=== PATIENT | female | born 1960 | race Caucasian/White ===

== ENCOUNTER 2022-11-05 08:54 | Day surgery (SDC) | payer OTHER ==
[~2022-11-05] VITALS: Ht 162.6 cm; Wt 115.9 kg
[~2022-11-05 08:54] MED LIST: 24 HOUR ALLERG9.9 ML NAS; ALL DAY ALLERGY10 M4 PO; BUSPIRONE HCL5 MG; CAROSPIR25 MG/5 ML
[2022-11-05 09:12] VITALS: BP 138/83
[2022-11-05] MEDS ORDERED: BUSPIRONE HCL15 MG PO (09:15)
[2022-11-05] MEDS ORDERED: SPIRONOLACTONE25 MG PO (09:15)
--- NOTE | 2022-11-05 10:37 | NUR ---
11/05/22 Sophie Howard 1033-PATIENT ARRIVED TO PACU ON 3L NC RR EVEN PLACED ON 2L. PATIENT AWAKE DROWSY DENIES PAIN OR NAUSEA. LAYING LEFT LATERAL ABDOMEN SOFT IVF INFUSING. PATIENT DOZES BACK TO SLEEP
[2022-11-05 11:12] VITALS: BP 111/84
--- NOTE | 2022-11-05 15:22 | OR ---
[facility] [address], [place] [address] Signed DATE OF OPERATION: 11/05/2022 SURGEON: Samuel Sorto MD PREOPERATIVE DIAGNOSES: 1. Dyspeptic symptoms suggestive of gastroesophageal reflux. 2. Colon screening. POSTOPERATIVE DIAGNOSES: 1. Hiatal hernia with mild gastritis, no evidence of severe esophagitis. 2. Extensive diverticulosis of colon. 3. Polyps x2 (right colon and sigmoid). PROCEDURES: 1. Esophagogastroduodenoscopy with biopsy. 2. Total colonoscopy to cecum with cold morcellation polypectomy x1 and cold snare polypectomy x1. ANESTHESIA: Intravenous sedation, fentanyl 150 mcg, Versed 9 mg (total). INDICATIONS FOR THE PROCEDURE: This 62-year-old white woman is a patient of GILMA Cheung. She is referred for symptoms of upper abdominal pain, dyspeptic symptoms, suggestion of possible reflux. She occasionally has some mild dysphagia, but no hematemesis. She has not yet undergone colonoscopy and on that basis is additionally admitted to undergo screening colonoscopy. The risk of bleeding, infection, perforation, and other unforeseen complications was reviewed with her. She understands and wished to proceed. FINDINGS: Upper endoscopy demonstrated relatively normal esophageal mucosa with no evidence of obvious stricture, neoplasm, or even inflammation particularly. There was a hiatal hernia that was moderately large, however. The stomach itself had mild inflammation. There was no sign of ulceration. The duodenum was normal. CLOtest was negative 30 minutes post procedure. On colonoscopy, the prep was quite good. Complete colonoscopy was undertaken to the cecum without question. She has extensive diverticulosis extending from the sigmoid proximally to all of the colon, most dominantly in the sigmoid and left colon. Electronically Signed By: SAMUEL SORTO MD 11/05/22 1522 PATIENT NAME: LILLY ROSS OPERATIVE REPORT DATE OF : 64 REPORT #: [id number] PHYSICIAN: SAMUEL SORTO MD PCP: GAVIN GUZMAN DO REPORT IS CONFIDENTIAL AND NOT TO BE RELEASED WITHOUT AUTHORIZATION [facility] [address], [place] [address] Signed There were two polyps, both of them small, both adenomatous in appearance, one in the right colon, excised with cold morcellation technique. The other in the sigmoid, excised with cold snare technique. There were no other findings of concern. DESCRIPTION OF PROCEDURE: The patient was brought to the endoscopy suite and placed in lateral decubitus position after undergoing lidocaine hypopharyngeal anesthesia. A bite block was placed. After administration of intravenous sedation to the point of slurred speech and nystagmus with full cardiopulmonary monitoring. An Olympus video upper endoscope was passed into the hypopharynx. The vocal cords appeared normal. Scope was advanced to the esophagus throughout its length, it appeared normal. The scope was passed into the stomach, which was insufflated with air. Rugal folds were normal. There was mild inflammatory change of the antrum. The pylorus was normal, scope was passed through into the duodenum, which was normal. Biopsies were taken of the duodenum to assess for celiac disease. The scope was withdrawn and biopsies taken from the stomach for both TANJA and pathologic testing. Retroflexed view was undertaken showing a moderate-sized hiatal hernia. The scope was straightened, withdrawn and biopsies then taken of the distal esophagus, but appeared normal. There was no Tatum epithelium or inflammation particularly. Midesophagus was biopsied as well. Scope was withdrawn, removed. Plans were then made for colonoscopy. Additional sedation was given. Digital rectal examination performed, which was normal and an Olympus video colonoscope passed into the rectum. Scope was advanced throughout the colon noting numerous diverticula of the sigmoid and left colon. The diverticula scattered all the way to the proximal colon including the right colon. Ileocecal valve and appendiceal orifice were identified as normal. Scope was withdrawn. In the mid ascending colon, there was a small adenomatous-appearing polyp, which was excised with cold morcellation technique completely. Further withdrawal showed diverticula once more and in the sigmoid colon at approximately 50 cm, a sessile slightly larger polyp noted, this was excised with cold snare technique completely. Specimen was passed for pathology. Further withdrawal showed no other abnormality including on retroflexed view of the rectum. The scope was removed. The patient was taken to the recovery room in good condition. CONCLUDING DIAGNOSES: 1. Clinical gastroesophageal reflux with associated hiatal hernia. No sign of obvious esophagitis. Mild gastritis. 2. Extensive diverticulosis; two small polyps, both excised. Electronically Signed By: SAMUEL SORTO MD 11/05/22 1522 PATIENT NAME: LILLY ROSS OPERATIVE REPORT DATE OF : 64 REPORT #: [id number] PHYSICIAN: SAMUEL SORTO MD PCP: GAVIN GUZMAN DO REPORT IS CONFIDENTIAL AND NOT TO BE RELEASED WITHOUT AUTHORIZATION [address] [address] Signed PLAN: Recommend PPI medication, omeprazole 20 mg p.o. daily. Recommend high-fiber diet. Additionally, we will recommend repeat colonoscopy in three years or sooner if clinically indicated. We will see her back in the office in 6-8 weeks and review her pathology reports and assess her response to therapy. MD SHAREE Rooney/CRISSL /[id number] cc: GILMA Cheung Copies: ~ Electronically Signed By: SAMUEL SORTO MD 11/05/22 1522 PATIENT NAME: LILLY ROSS OPERATIVE REPORT DATE OF : 64 REPORT #: [id number] PHYSICIAN: SAMUEL SORTO MD PCP: GAVIN GUZMAN DO REPORT IS CONFIDENTIAL AND NOT TO BE RELEASED WITHOUT AUTHORIZATION
--- NOTE | 2022-11-10 09:03 | PATH ---
[facility] [address], [place] [address] Signed SPECIMEN(S): A DUODENAL BIOPSY SPECIMEN(S): B ANTRUM/PYLORUS BIOPSY SPECIMEN(S): C LOWER ESOPHAGEAL BIOPSY SPECIMEN(S): D MIDDLE ESOPHAGEAL BIOPSY SPECIMEN(S): E ASCENDING/RIGHT COLON POLYP SPECIMEN(S): F DESCENDING/LEFT COLON POLYP SPECIMEN SOURCE: A. DUODENAL BIOPSY B. ANTRUM/PYLORUS BIOPSY C. LOWER ESOPHAGEAL BIOPSY D. MIDDLE ESOPHAGEAL BIOPSY E. ASCENDING/RIGHT COLON POLYP F. DESCENDING/LEFT COLON POLYP CLINICAL HISTORY: Pre: Family history (grandfather) colon CA, initial screening. Dysphagia, dyspepsia, reflux. Post: Hiatal hernia, diverticulosis, polyps x2. FINAL PATHOLOGIC DIAGNOSIS: A. Duodenal biopsy: - Benign duodenal mucosa, negative for specific diagnostic abnormality. B. Antrum / pylorus biopsy: - Benign gastric-type mucosa with focal slight chronic inflammation. - Negative for evidence of Helicobacter organisms on routine HE stained sections. C. Lower esophageal biopsy: - Benign esophageal epithelium, negative for increased epithelial eosinophils. - Negative for glandular mucosa. D. Middle esophageal biopsy: - Benign esophageal epithelium, negative for increased epithelial eosinophils. E. Ascending / right colon polyp: - Tubular adenoma (one fragment). F. Descending / left colon polyp: - Tubular adenoma (one fragment). [id number] MICROSCOPIC EXAMINATION: Histologic sections of all submitted blocks are examined by light microscopy. These findings, together with the gross examination, support the pathologic diagnosis. PATIENT NAME: LILLY LACKEY PATHOLOGY DATE OF : 64 REPORT #: [id number] PHYSICIAN: KAYY HELLER PCP: GAVIN GUZMAN DO REPORT IS CONFIDENTIAL AND NOT TO BE RELEASED WITHOUT AUTHORIZATION [facility] [address], [place] [address] Signed GROSS DESCRIPTION: A. The specimen, labeled and designated "Lackey, S, 1." and designated on the requisition "duodenum biopsy," is received in formalin and consists of two ortega soft tissue fragments that measure 0.3 and 0.5 cm in greatest dimension. The specimen is entirely submitted in (A1). B. The specimen, labeled and designated "Lackey, S, 2." and designated on the requisition "antrum/pylorus biopsy," is received in formalin and consists of two ortega soft tissue fragments that measure 0.3 and 0.4 cm in greatest dimension. The specimen is entirely submitted in (B1). C. The specimen, labeled and designated "Lackey, S, 3." and designated on the requisition "lower esophagus biopsy," is received in formalin and consists of two white-ortega soft tissue fragments that measure 0.7 and 0.9 cm in greatest dimension. The specimen is entirely submitted in (C1). D. The specimen, labeled and designated "Lackey, S, 4." and designated on the requisition "middle esophagus biopsy," is received in formalin and consists of one white-ortega soft tissue fragment that measures 1.0 cm in greatest dimension. The specimen is entirely submitted in (D1). E. The specimen, labeled and designated "Lackey, S, 5." and designated on the requisition "ascending/right polypectomy," is received in formalin and consists of three ortega soft tissue fragments that measure 0.2-0.3 cm in greatest dimension. Also present within the container is fecal debris. The specimen is entirely submitted in (E1). F. The specimen, labeled and designated "Darya, Radha, 6." and designated on the requisition "descending/left polypectomy," is received in formalin and consists of one ortega soft tissue fragment that is 0.5 cm in greatest dimension. The specimen is entirely submitted in (F1). FB (under the direct supervision of a pathologist) The Gross Description was prepared using a voice recognition system. The report was reviewed for accuracy; however, sound-alike word errors, addition and/or deletions may occur. If there is any question about this report, please contact Client Services. PERFORMING LABORATORY: Technical component was performed by [facility], [address] [place] [id number] (CLIA# [id number]). Professional interpretation was performed by [facility] [place], PATIENT NAME: LILLY LACKEY PATHOLOGY DATE OF : 64 REPORT #: [id number] PHYSICIAN: ALLENHardide Coatings PATHOLOGY PCP: GAVIN GUZMAN DO REPORT IS CONFIDENTIAL AND NOT TO BE RELEASED WITHOUT AUTHORIZATION [facility] [address] [place] [id number] Signed [address] [place] [address] (CLIA#: [id number]). Diagnostician: Huan Ricci MD Pathologist Electronically Signed 11/09/2022 Copies: ~ PATIENT NAME: LILLY LACKEY PATHOLOGY DATE OF : 64 REPORT #: [id number] PHYSICIAN: KAYY HELLER PCP: GAVIN GUZMAN DO REPORT IS CONFIDENTIAL AND NOT TO BE RELEASED WITHOUT AUTHORIZATION
== END 2022-11-05 11:20 | disposition home or self-care (01) ==
LOC: DS 08:54 → OPS 08:54 → DS 13:45 → OPS 13:45
PROVIDERS: ATTEND Surgery
PROC: 0DB98ZX Excision of Duodenum, Via Natural or Artificial Opening Endoscopic, Diagnostic (ICD-10-PCS; 2022-11-05)
PROC: 0DB78ZX Excision of Stomach, Pylorus, Via Natural or Artificial Opening Endoscopic, Diagnostic (ICD-10-PCS; 2022-11-05)
PROC: 0DB58ZX Excision of Esophagus, Via Natural or Artificial Opening Endoscopic, Diagnostic (ICD-10-PCS; 2022-11-05)
PROC: 0DBF8ZX Excision of Right Large Intestine, Via Natural or Artificial Opening Endoscopic, Diagnostic (ICD-10-PCS; principal; 2022-11-05 10:30)
PROC: 0DBN8ZX Excision of Sigmoid Colon, Via Natural or Artificial Opening Endoscopic, Diagnostic (ICD-10-PCS; 2022-11-05 10:30)
DX: Z12.11 Encounter for screening for malignant neoplasm of colon (principal); K57.30 Diverticulosis of large intestine without perforation or abscess without bleeding; D12.2 Benign neoplasm of ascending colon; D12.4 Benign neoplasm of descending colon; K29.50 Unspecified chronic gastritis without bleeding; K44.9 Diaphragmatic hernia without obstruction or gangrene; Z80.0 Family history of malignant neoplasm of digestive organs; K21.9 Gastro-esophageal reflux disease without esophagitis; I10 Essential (primary) hypertension; E66.01 Morbid (severe) obesity due to excess calories; Z68.41 Body mass index [BMI] 40.0-44.9, adult; Z79.899 Other long term (current) drug therapy
CPT/HCPCS: 99153; G0500; J2250; J3010; J7121